=== PATIENT | male | born 1950 | race Caucasian/White ===

== ENCOUNTER 2018-01-29 22:29 | Emergency (ER) | payer OTHER, MEDICAID ==
[~2018-01-29] VITALS: Ht 182.9 cm; Wt 84.4 kg
[2018-01-29 22:34] VITALS: BP_SYST 126
[2018-01-29] MEDS ORDERED: FLUT16SP16 NS (22:56)
[2018-01-29] MEDS ORDERED: CALC-912 PO (22:56)
[2018-01-29] MEDS ORDERED: QUET100T33 PO (22:56)
[2018-01-29] MEDS ORDERED: LOSA100T3 PO (22:56)
[2018-01-29] MEDS ORDERED: QUET50TA PO (22:56)
[2018-01-29] MEDS ORDERED: AMLO5TAB4 PO (22:56)
[2018-01-29] MEDS ORDERED: ACET-2165 PO (22:56)
[2018-01-29] MEDS ORDERED: FEXO-25 PO (22:56)
[2018-01-29] MEDS ORDERED: ALBMDI INH (22:56)
[2018-01-29] MEDS ORDERED: LEVO125T8 PO (22:56)
[2018-01-29] MEDS ORDERED: BENZ1TAB7 PO (22:56)
[2018-01-29] MEDS ORDERED: FERR140T PO (22:56)
[2018-01-29] MEDS ORDERED: IBUP-1969 PO (22:56)
[2018-01-29] MEDS ORDERED: KETOROLAC TROMETHAMINE 60 MG/2 ML VIAL IM ONE (23:45)
[2018-01-30 00:40] VITALS: BP_SYST 116
== END 2018-01-30 00:40 | disposition home or self-care (01) ==
LOC: SED 22:29
DX: R51 Headache (principal); E03.9 Hypothyroidism, unspecified; I10 Essential (primary) hypertension; Z79.899 Other long term (current) drug therapy
CPT/HCPCS: 96372; 99283; J1885

== ENCOUNTER 2018-02-28 20:30 | Inpatient (IN) | payer OTHER, MEDICAID ==
[~2018-02-28] VITALS: Ht 180.3 cm; Wt 70.3 kg
[~2018-02-28 20:30] MED LIST: ACET-2165 PO; ALBMDI INH; AMLO5TAB4 PO; BENZ1TAB7 PO; CALC-912 PO; FERR140T PO; FEXO-25 PO; FLUT16SP16 NS; IBUP-1969 PO; LEVO125T8 PO; LOSA100T3 PO; QUET100T33 PO; QUET50TA PO
[2018-02-28 20:38] VITALS: BP_SYST 108
[2018-02-28 21:58] LABS: HEMOGLOBIN 14.5 g/dL (14.0-18.0); MEAN CORPUSCULAR HEMOGLOBIN 28 pg (27-31); MEAN CORPUSCULAR HGB CONC 33 % (32-36); MEAN CORPUSCULAR VOLUME 85 fL (79.0-98.0); PLATELET COUNT (AUTO) 283 K/uL (130-430); RED BLOOD CELL COUNT(AUTO) 5.16 MIL/uL (4.2-6.2); RED CELL DISTRIBUTION WIDTH 13.4 % (9.0-15.0); WHITE BLOOD COUNT (AUTO) 23.5 K/uL (4.8-10.8)
[2018-02-28 22:12] LABS: CREATININE 1.22 mg/dL (0.55-1.30); POTASSIUM 3.6 mmol/L (3.5-5.1)
[2018-02-28 22:16] LABS: ALBUMIN 3.3 g/dL (3.4-4.8); TOTAL BILIRUBIN 0.5 mg/dL (0.0-1.0)
[2018-02-28 22:34] LABS: INR 1.1 (0.80-1.20); PROTHROMBIN TIME 10.9 SECS (9.5-12.5)
[2018-02-28 22:52] LABS: BAND % (MANUAL) 10 % (0-6)
[2018-02-28 22:53] LABS: BASOPHILS % (MANUAL) 0 % (0-2); EOSINOPHILS % (MANUAL) 0 % (0-7); LYMPHOCYTES % (MANUAL) 12 % (20-46); MONOCYTES % (MANUAL) 6 % (0-11)
[2018-02-28 22:53] LABS: BILIRUBIN,URINE NEGATIVE (NEGATIVE); BLOOD, URINE 2+ (NEGATIVE); CLARITY/URINE SL HAZY (CLEAR); COLOR,URINE YELLOW (YELLOW); GLUCOSE,URINE NEGATIVE (NEGATIVE); KETONES,URINE NEGATIVE (NEGATIVE); LEUKOCYTE ESTERASE ,URINE 2+ (NEGATIVE); NITRITE, URINE POSITIVE (NEGATIVE); PH,URINE 5.5 (5.0-8.0); PROTEIN URINE TRACE (NEGATIVE); UROBILINOGEN,URINE 0.2 (0.2-1.0)
[2018-02-28] MEDS ORDERED: NS 1000 ML IV.SOLN IV ONE (23:00)
[2018-02-28] MEDS ORDERED: PIPERACILLIN/TAZO 3.38 GM in D5W 50 ML IV ONE (23:00)
[2018-02-28] MEDS ORDERED: ACETAMINOPHEN 325 MG TABLET PO ONE (23:00)
[2018-02-28] MEDS ORDERED: VANCOMYCIN HCL 1,000 MG in D5W 250 ML IV ONE (23:00)
[2018-02-28 23:04] LABS: BACTERIA,URINE MANY /HPF (None Seen); RBC,URINE 20-50 /HPF (0-3); WBC,URINE 50-80 /HPF (0-3)
[2018-02-28] MEDS ORDERED: PIPERACILLIN/TAZOBACTAM 3.375 GM/VIAL (ZOSYN) IV ONE (23:10)
[2018-02-28] MEDS ORDERED: LORA10TA7 PO (23:23)
[2018-02-28] MEDS ORDERED: LEVO150T8 PO (23:25)
[2018-02-28] MEDS ORDERED: OLAN7.5T3 PO (23:29)
[2018-02-28] MEDS ORDERED: OLAN2.5T3 PO (23:30)
[2018-02-28] MEDS ORDERED: BENZ100C92 PO (23:32)
[2018-03-01] VITALS (7 sets, daily range): BP systolic 98–132
[2018-03-01] MEDS ORDERED: VANCOMYCIN HCL 1000 MG/VIAL IV ONE (00:13)
[2018-03-01] MEDS: KCL 20 mEq in D5/0.45NS 1000mL 1,000 ML IV SCH ×2 (03:40→21:01)
[2018-03-01 06:59] LABS: BASOPHILS # (AUTO) 0.1 K/uL (0.0-0.2); BASOPHILS % (AUTO) 0.3 % (0.0-2.0); EOSINOPHILS # (AUTO) 0.2 K/uL (0.0-0.4); EOSINOPHILS % (AUTO) 1.1 % (0.0-4.0); HEMATOCRIT 37.8 % (36-54); HEMOGLOBIN 12.8 g/dL (14.0-18.0); LYMPHOCYTES # (AUTO) 2.8 K/uL (1.0-5.5); LYMPHOCYTES % (AUTO) 13.2 % (20.5-51.5); MEAN CORPUSCULAR HEMOGLOBIN 29 pg (27-31); MEAN CORPUSCULAR HGB CONC 34 % (32-36); MEAN CORPUSCULAR VOLUME 86 fL (79.0-98.0); MONOCYTES # (AUTO) 1.7 K/uL (0.0-1.0); MONOCYTES % (AUTO) 8.1 % (1.7-9.3); NEUTROPHILS # (AUTO) 16.3 K/uL (1.8-7.7); PLATELET COUNT (AUTO) 234 K/uL (130-430); RED BLOOD CELL COUNT(AUTO) 4.41 MIL/uL (4.2-6.2); RED CELL DISTRIBUTION WIDTH 13.3 % (9.0-15.0); WHITE BLOOD COUNT (AUTO) 21.1 K/uL (4.8-10.8)
[2018-03-01 07:27] LABS: ALBUMIN 2.4 g/dL (3.4-4.8); CALCIUM 8.1 mg/dL (8.4-11.0); CREATININE 0.97 mg/dL (0.55-1.30); POTASSIUM 3.8 mmol/L (3.5-5.1); TOTAL BILIRUBIN 0.6 mg/dL (0.0-1.0)
[2018-03-01 08:14] LABS: NEUTROPHILS % (AUTO) 77.3 % (40.0-70.0)
[2018-03-01] MEDS: CEFEPIME 1 GM in D5W 50 ML IV SCH ×2 (09:44→21:02)
[2018-03-01] MEDS ORDERED: IBUPROFEN 600 MG TABLET PO PRN (14:30)
[2018-03-01] MEDS ORDERED: ACETAMINOPHEN 325 MG TABLET PO PRN (14:30)
[2018-03-01] MEDS: LevALBUTEROL HCL 1.25 MG/0.5 ML *CONC.* VIAL.NEB (XOPENEX CONC.) INH SCH ×2 (15:20→23:49)
[2018-03-01] MEDS: LORATADINE 10 MG TABLET PO SCH (19:05)
[2018-03-01] MEDS: FLUTICASONE PROPIONATE 50 mCg/SPRAY 16 GM NS SCH (21:02)
[2018-03-01] MEDS: FERROUS SULFATE 325 MG TABLET.DR PO SCH (21:03)
[2018-03-01] MEDS: OLANZapine 2.5 MG TABLET PO SCH (21:04)
[2018-03-01] MEDS: ACETAMINOPHEN 325 MG TABLET PO PRN (21:04)
[2018-03-01] MEDS: ENOXAPARIN SODIUM 40 MG/0.4 ML SYRINGE SUBCUT SCH (21:05)
[2018-03-02] VITALS: BP_SYST 122
[2018-03-02] MEDS: KCL 20 mEq in D5/0.45NS 1000mL 1,000 ML IV SCH ×2 (06:29→13:32)
[2018-03-02] MEDS: LEVOTHYROXINE SODIUM 0.15 MG TABLET PO SCH (06:34)
[2018-03-02 07:11] LABS: BASOPHILS % (AUTO) 0.3 % (0.0-2.0); EOSINOPHILS # (AUTO) 0.5 K/uL (0.0-0.4); EOSINOPHILS % (AUTO) 3.9 % (0.0-4.0); HEMATOCRIT 35.3 % (36-54); LYMPHOCYTES # (AUTO) 1.4 K/uL (1.0-5.5); LYMPHOCYTES % (AUTO) 11.9 % (20.5-51.5); MEAN CORPUSCULAR HEMOGLOBIN 30 pg (27-31); MEAN CORPUSCULAR HGB CONC 34 % (32-36); MEAN CORPUSCULAR VOLUME 86 fL (79.0-98.0); MONOCYTES # (AUTO) 1.2 K/uL (0.0-1.0); MONOCYTES % (AUTO) 9.7 % (1.7-9.3); NEUTROPHILS # (AUTO) 8.9 K/uL (1.8-7.7); NEUTROPHILS % (AUTO) 74.2 % (40.0-70.0); PLATELET COUNT (AUTO) 211 K/uL (130-430); RED BLOOD CELL COUNT(AUTO) 4.08 MIL/uL (4.2-6.2); RED CELL DISTRIBUTION WIDTH 13.2 % (9.0-15.0)
[2018-03-02] MEDS: LevALBUTEROL HCL 1.25 MG/0.5 ML *CONC.* VIAL.NEB (XOPENEX CONC.) INH SCH ×3 (07:25→23:26)
[2018-03-02 07:27] LABS: CALCIUM 8.2 mg/dL (8.4-11.0); CREATININE 0.76 mg/dL (0.55-1.30); POTASSIUM 3.6 mmol/L (3.5-5.1)
[2018-03-02] MEDS: CEFEPIME 1 GM in D5W 50 ML IV SCH ×2 (08:48→20:42)
[2018-03-02] MEDS: amLODIPine BESYLATE 5 MG TABLET PO SCH (08:51)
[2018-03-02] MEDS: FERROUS SULFATE 325 MG TABLET.DR PO SCH ×2 (08:51→20:42)
[2018-03-02] MEDS: LOSARTAN POTASSIUM 50 MG TABLET (COZAAR) PO SCH (08:51)
[2018-03-02] MEDS: OLANZapine 2.5 MG TABLET PO SCH ×2 (08:52→20:42)
[2018-03-02] MEDS: FLUTICASONE PROPIONATE 50 mCg/SPRAY 16 GM NS SCH ×2 (08:54→20:46)
[2018-03-02 09:01] VITALS: BP_SYST 143
[2018-03-02 12:00] VITALS: BP_SYST 118
[2018-03-02 15:30] VITALS: BP_SYST 123
[2018-03-02] MEDS: LORATADINE 10 MG TABLET PO SCH (19:27)
[2018-03-02 20:00] VITALS: BP_SYST 144
[2018-03-02] MEDS: ENOXAPARIN SODIUM 40 MG/0.4 ML SYRINGE SUBCUT SCH (20:44)
[2018-03-03] VITALS: BP_SYST 138
[2018-03-03] MEDS: KCL 20 mEq in D5/0.45NS 1000mL 1,000 ML IV SCH (01:45)
[2018-03-03] MEDS: LEVOTHYROXINE SODIUM 0.15 MG TABLET PO SCH (06:18)
[2018-03-03] MEDS: LevALBUTEROL HCL 1.25 MG/0.5 ML *CONC.* VIAL.NEB (XOPENEX CONC.) INH SCH ×3 (07:35→23:06)
[2018-03-03 08:01] VITALS: BP_SYST 133
[2018-03-03] MEDS: amLODIPine BESYLATE 5 MG TABLET PO SCH (08:01)
[2018-03-03] MEDS: CEFEPIME 1 GM in D5W 50 ML IV SCH ×2 (08:01→20:38)
[2018-03-03] MEDS: FERROUS SULFATE 325 MG TABLET.DR PO SCH ×2 (08:02→20:38)
[2018-03-03] MEDS: LOSARTAN POTASSIUM 50 MG TABLET (COZAAR) PO SCH (08:02)
[2018-03-03] MEDS: OLANZapine 2.5 MG TABLET PO SCH ×2 (08:04→20:38)
[2018-03-03] MEDS: FLUTICASONE PROPIONATE 50 mCg/SPRAY 16 GM NS SCH ×2 (10:24→20:38)
[2018-03-03 12:24] VITALS: BP_SYST 142
[2018-03-03 16:23] VITALS: BP_SYST 140
[2018-03-03] MEDS: LORATADINE 10 MG TABLET PO SCH (17:42)
[2018-03-03] MEDS ORDERED: HALOPERIDOL LACTATE 5 MG/ML VIAL ONE (18:57)
[2018-03-03] MEDS ORDERED: HALOPERIDOL LACTATE 5 MG/ML VIAL IM ONE (19:00)
[2018-03-03 20:00] VITALS: BP_SYST 135
[2018-03-03] MEDS: ENOXAPARIN SODIUM 40 MG/0.4 ML SYRINGE SUBCUT SCH (20:39)
[2018-03-04 00:36] VITALS: BP_SYST 148
[2018-03-04] MEDS: KCL 20 mEq in D5/0.45NS 1000mL 1,000 ML IV SCH ×2 (02:35→08:34)
[2018-03-04] MEDS: ACETAMINOPHEN 325 MG TABLET PO PRN (04:29)
[2018-03-04] MEDS: LEVOTHYROXINE SODIUM 0.15 MG TABLET PO SCH (06:01)
[2018-03-04 06:57] LABS: BASOPHILS % (AUTO) 0.5 % (0.0-2.0); EOSINOPHILS # (AUTO) 0.3 K/uL (0.0-0.4); EOSINOPHILS % (AUTO) 4.2 % (0.0-4.0); HEMOGLOBIN 13.6 g/dL (14.0-18.0); LYMPHOCYTES % (AUTO) 13.2 % (20.5-51.5); MEAN CORPUSCULAR HEMOGLOBIN 29 pg (27-31); MEAN CORPUSCULAR HGB CONC 34 % (32-36); MEAN CORPUSCULAR VOLUME 86 fL (79.0-98.0); MONOCYTES # (AUTO) 0.8 K/uL (0.0-1.0); MONOCYTES % (AUTO) 10.9 % (1.7-9.3); NEUTROPHILS # (AUTO) 5.6 K/uL (1.8-7.7); NEUTROPHILS % (AUTO) 71.2 % (40.0-70.0); PLATELET COUNT (AUTO) 287 K/uL (130-430); RED BLOOD CELL COUNT(AUTO) 4.66 MIL/uL (4.2-6.2); WHITE BLOOD COUNT (AUTO) 7.7 K/uL (4.8-10.8)
[2018-03-04 07:35] LABS: CALCIUM 8.8 mg/dL (8.4-11.0); CREATININE 0.74 mg/dL (0.55-1.30); POTASSIUM 3.7 mmol/L (3.5-5.1)
[2018-03-04] MEDS: LevALBUTEROL HCL 1.25 MG/0.5 ML *CONC.* VIAL.NEB (XOPENEX CONC.) INH SCH ×3 (07:52→23:19)
[2018-03-04 08:00] VITALS: BP_SYST 137
[2018-03-04] MEDS: FERROUS SULFATE 325 MG TABLET.DR PO SCH ×2 (08:35→20:16)
[2018-03-04] MEDS: LOSARTAN POTASSIUM 50 MG TABLET (COZAAR) PO SCH (08:35)
[2018-03-04] MEDS: amLODIPine BESYLATE 5 MG TABLET PO SCH (08:36)
[2018-03-04] MEDS: OLANZapine 2.5 MG TABLET PO SCH ×2 (08:37→20:16)
[2018-03-04] MEDS: CEFEPIME 1 GM in D5W 50 ML IV SCH ×2 (08:42→20:17)
[2018-03-04] MEDS: FLUTICASONE PROPIONATE 50 mCg/SPRAY 16 GM NS SCH ×2 (08:43→20:16)
[2018-03-04 16:00] VITALS: BP_SYST 132; BP_SYST 137
[2018-03-04] MEDS: LORATADINE 10 MG TABLET PO SCH (17:27)
[2018-03-04 18:46] VITALS: BP_SYST 122
[2018-03-04 20:00] VITALS: BP_SYST 147
[2018-03-04] MEDS: ENOXAPARIN SODIUM 40 MG/0.4 ML SYRINGE SUBCUT SCH (20:21)
[2018-03-05 01:51] VITALS: BP_SYST 151
[2018-03-05] MEDS: KCL 20 mEq in D5/0.45NS 1000mL 1,000 ML IV SCH (05:20)
[2018-03-05] MEDS: LEVOTHYROXINE SODIUM 0.15 MG TABLET PO SCH (06:01)
[2018-03-05] MEDS: CEFEPIME 1 GM in D5W 50 ML IV SCH (08:04)
[2018-03-05] MEDS: FLUTICASONE PROPIONATE 50 mCg/SPRAY 16 GM NS SCH (08:05)
[2018-03-05] MEDS: OLANZapine 2.5 MG TABLET PO SCH (08:06)
[2018-03-05] MEDS: amLODIPine BESYLATE 5 MG TABLET PO SCH (08:07)
[2018-03-05] MEDS: LOSARTAN POTASSIUM 50 MG TABLET (COZAAR) PO SCH (08:07)
[2018-03-05] MEDS: FERROUS SULFATE 325 MG TABLET.DR PO SCH (08:07)
[2018-03-05 08:10] VITALS: BP_SYST 115
[2018-03-05] MEDS: LevALBUTEROL HCL 1.25 MG/0.5 ML *CONC.* VIAL.NEB (XOPENEX CONC.) INH SCH (08:35)
[2018-03-05] MEDS ORDERED: OLANZapine 2.5 MG TABLET PO ONE ×3 (08:45→09:00)
[2018-03-05] MEDS ORDERED: OLANZapine 2.5 MG TABLET PO SCH (09:00)
[2018-03-05 11:13] VITALS: BP_SYST 139
[2018-03-05 12:00] VITALS: BP_SYST 139
[2018-03-05 14:48] VITALS: BP_SYST 124
== END 2018-03-05 15:15 | disposition home health service (06) | DRG 871 ==
LOC: SED 20:30 → STU 03-01 00:19 → SMU 03-03 12:20
PROVIDERS: ADMIT Family Medicine; ATTEND Family Medicine
DX: A41.9 Sepsis, unspecified organism (principal); E43 Unspecified severe protein-calorie malnutrition; G93.41 Metabolic encephalopathy; N39.0 Urinary tract infection, site not specified; Z68.1 Body mass index [BMI] 19.9 or less, adult; E03.9 Hypothyroidism, unspecified; F03.90 Unspecified dementia, unspecified severity, without behavioral disturbance, psychotic disturbance, mood disturbance, and anxiety; I10 Essential (primary) hypertension; J45.909 Unspecified asthma, uncomplicated; Z79.1 Long term (current) use of non-steroidal anti-inflammatories (NSAID); Z79.899 Other long term (current) drug therapy
CPT/HCPCS: 36415; 71045; 80048; 80053; 81000-TC; 83605; 84484; 85007; 85025; 85027; 85610-TC; 85730-TC; 87040-TC; 87081; 87086; 87186-TC; 93005; 94640; 94760; 96365; 96367; 97110-GP; 97116-GP; 97530-GP; 99285; J0692; J1630; J1650; J2543; J3370; J7030; J7040; J7060; J7612

== ENCOUNTER 2018-07-19 10:52 | Emergency (ER) | payer OTHER, MEDICAID ==
[~2018-07-19] VITALS: Ht 185.4 cm; Wt 85.3 kg
[~2018-07-19 10:52] MED LIST changes: +BENZ100C92 PO; -BENZ1TAB7 PO; -FERR140T PO; +FERR140T2 PO; -FEXO-25 PO; -LEVO125T8 PO; +LEVO150T8 PO; +LORA10TA7 PO; +OLAN2.5T3 PO; +OLAN7.5T3 PO; -QUET100T33 PO; -QUET50TA PO
[2018-07-19 11:09] VITALS: BP_SYST 119
[2018-07-19 12:31] VITALS: BP_SYST 118
== END 2018-07-19 12:30 | disposition home or self-care (01) ==
LOC: SED 10:52
DX: L02.411 Cutaneous abscess of right axilla (principal); F03.90 Unspecified dementia, unspecified severity, without behavioral disturbance, psychotic disturbance, mood disturbance, and anxiety; I10 Essential (primary) hypertension; E03.9 Hypothyroidism, unspecified; Z79.899 Other long term (current) drug therapy
CPT/HCPCS: 99283